=== PATIENT | female | born 2000 | race Caucasian/White ===

== ENCOUNTER 2023-04-18 10:38 | Outpatient (CLI) | payer OTHER, SELFPAY ==
[2023-04-18 19:16] LABS: Basophils # 0.1 K/mm3 (0-0.2); Eosinophils # 0.4 K/mm3 (0.0-0.4); Eosinophils % 5.8 % (0.1-12.0); Hematocrit 47.1 % (37.0-47.0); Hemoglobin 15.3 g/dL (12.2-16.2); Lymphocytes # 2.4 K/mm3 (0.7-4.5); Lymphocytes % 32.7 % (10-50); Mean Corpuscular HGB Conc 32.6 g/dL (31.8-35.4); Mean Corpuscular Hemoglobin 26.6 pg (27.0-31.2); Mean Corpuscular Volume 81.6 fl (81-99); Mean Platelet Volume 9.6 fl (7.4-10.4); Monocytes # 0.3 K/mm3 (0.1-1.0); Monocytes % 4.8 % (1.7-9.3); Neutrophils % 55.6 % (37.0-80.0); Platelet Count 222 K/mm3 (142-424); Red Blood Count 5.78 M/mm3 (4.20-5.40); Red Cell Distribution Width 15.2 % (11.5-17.5); White Blood Count 7.2 K/mm3 (4.8-10.8)
[2023-04-18 21:32] LABS: Hemoglobin A1C 5.2 % (4.0-6.0)
[2023-04-18 21:45] LABS: Alanine Aminotransferase 23 U/L (12-78); Alkaline Phosphatase 85 U/L (38-126); Aspartate Amino Transferase 27 U/L (14-36); Bilirubin,Total 0.3 mg/dl (0.2-1.3); Blood Urea Nitrogen 9 mg/dl (7-17); Calcium 8.8 mg/dl (8.4-10.2); Carbon Dioxide 28 mmol/L (22.0-30.0); Chloride 106 mmol/L (98-107); Estimated Glomerular Filt Rate 105 ml/min (>60); GFR (African American) 127 ML/MIN (>60); Glucose 91 mg/dl (74-100)
[2023-04-18 21:46] LABS: Albumin Level 4.4 g/dl (3.5-5.0); Albumin/Globulin Ratio 1.6 (1.1-1.8); Anion Gap 6.4 mEq/L (5-15); Globulin 2.8 g/dL (1.3-3.2); Potassium 4.4 mmoL/L (3.5-5.1); Sodium 136 mmol/L (136-145); Total Protein,Serum 7.2 g/dl (6.3-8.2)
[2023-04-18 22:02] LABS: HCG,Quantitative < 2 mIU/ml (0-5.42)
[2023-04-18 22:17] LABS: Thyroid Stimulating Hormone 0.61 uIU/mL (0.465-4.68)
== END 2023-04-18 23:59 ==
LOC: LAB.DROPOF 04-19 10:39
PROVIDERS: PCP Nurse Practitioner; Visit Provider Nurse Practitioner
DX: N91.2 Amenorrhea, unspecified (principal); Z13.1 Encounter for screening for diabetes mellitus
CPT/HCPCS: 80053; 83036; 84443; 84702; 85025

== ENCOUNTER 2023-05-23 09:15 | Outpatient (CLI) | payer OTHER, SELFPAY ==
[2023-05-24 08:21] LABS: Prolactin 18.6 ng/mL (4.8-33.4)
== END 2023-05-23 23:59 ==
LOC: LAB 09:16
PROVIDERS: Visit Provider Obstetrics & Gynecology
DX: E28.2 Polycystic ovarian syndrome (principal)
CPT/HCPCS: 36415; 84146

== ENCOUNTER 2023-08-02 18:04 | Emergency (ER) | payer OTHER, SELFPAY ==
[2023-08-02 18:05] VITALS: BP 117/65; PULSE 74; RESP 18; TEMP 36.7; O2SAT 100; BMI 49.7
[2023-08-02 18:31] VITALS: BP 95/63; PULSE 64; O2SAT 100
--- NOTE | 2023-08-02 18:41 | ED_ITS ---
<Statement entered by Ranjan Escalante MD - 08/02/23 22:48> I was consulted by the SHERRELL, and we discussed the complexity of the problems being addressed. I approved the treatment and management plan for this patient's care in the emergency department, thus performing a substantive portion of the medical decision making. Ranjan Escalante MD, DANYELLE, FACEP Discharge Plan Disposition Patient Disposition: Home, Self-Care Condition: Good Chief Complaint: Extremity Injury, Lower Prescriptions Prescriptions: No Action azithromycin [Zithromax] 500 mg tablet 1,000 mg PO ONCE Qty: 2 0RF malathion 0.5 % lotion 1 applic topical WEEKLY Qty: 59 1RF Referrals Follow up/Referrals: Lesley Douglass APRN [Primary Care Provider] - See instructions Lorri Kaur DPM [Staff Physician] - See instructions Activity Restrictions/Add. Instructions Additional Instructions/Restrictions: Ice and elevate your foot tonight. Weight-bear as tolerated but only in the boot. Take Tylenol alternating with Motrin every 4 hours as needed for pain Clinical Impressions Clinical Impression: Closed fracture of great toe of left foot Discharge ED Provider: Ranjan Escalante General Adult HPI General Chief complaint: Extremity Injury, Lower Stated complaint: [id number] LT foot inj Time Seen by Provider: 08/02/23 18:19 Mode of Arrival: Wheelchair Source of Information: Patient Limitations: No Limitations Description of Symptoms (Recalled from ER Triage Doc. by RN): Patient reports that she had a 20lb. thing of frozen meat fall onto the top of her left foot. Complaint of pain on the top of her foot and around the arch of her foot. History of Present Illness HPI narrative: Presents for left hallux pain. Patient dropped a 20 pound roll of frozen hamburger directly onto her dorsum of her great toe right at the base of the nail. She immediately felt pain and noticed that it started to swell. She is however able to bear weight although it is painful. She is neurovascularly intact. Related Data Previous Rx's Medication Instructions Recorded azithromycin 500 mg tablet 1,000 mg (2 x 500 mg) PO ONCE #2 05/29/23 (Zithromax) tabs malathion 0.5 % lotion 1 applic topical WEEKLY 2 doses 06/14/23 #59 mL hydrocodone 5 mg-acetaminophen 325 1 tab PO Q6H PRN pain 3 days #12 08/02/23 mg tablet tabs Allergies Allergy/AdvReac Type Severity Reaction Status Date / Time No Known Allergies Allergy Verified 05/24/23 15:30 PFSH PFS Disclaimer: The information contained in this section may have been updated after the patient was seen, as this information can be updated by other users. Medical History (Updated 08/02/23 @ 19:23 by KIMBER Villagomez) High blood cholesterol Depression Anxiety PCOS (polycystic ovarian syndrome) Bipolar 2 disorder, major depressive episode Surgical History Hx of section Family History (Updated 05/24/23 @ 15:35 by Michelle Castellanos) Grandmother Cancer Other Diabetes Hypertension Social History (Updated 05/24/23 @ 15:36 by Michelle Castellanos) Smoking Status: Unknown if ever smoked alcohol intake: never substance use type: marijuana current occupational status: employed Travel in the last 8 weeks: None ROS Obtained: Yes Systems reviewed as appropriate & no additional complaints except as documented Physical Exam General General appearance: alert and in no apparent distress Respiratory Respiratory exam: Present normal lung sounds bilaterally Cardiovascular Cardiovascular exam: Present regular rate and normal rhythm Neurological Exam Neurological exam: Present alert and oriented X3 Other Other exam information: Patient has a little bit of bleeding at the proximal nail fold and eponychium is visible. There appears to be a subungual hematoma arising proximally and spreading distally does not reach 50% yonatan of the nail plate. There is swelling and redness dorsally proximal to the nailbed. No obvious deformity but is exquisitely tender to palpation and range of motion Medical Decision Making Medical Records Medical records reviewed: Yes I reviewed the patient's medical records. Jose Inquiry Pt receiving controlled substance: No Vital Signs: 08/02/23 18:05 08/02/23 18:31 Temperature 98.0 F Temperature Source Oral Pulse Rate 64 Pulse Rate [Radial] 74 Respiratory Rate 18 Blood Pressure 95/63 L Blood Pressure [Right Arm] 117/65 Blood Pressure Mean [Right Arm] 82 Blood Pressure Source [Right Arm] Automatic Cuff Blood Pressure Position [Right Arm] Sitting 02 Sat by Pulse Oximetry 100 100 Oxygen Delivery Method Room Air Room Air Orders (Tests/Meds): ED MEDICATIONS Discontinued Medications Generic Name Dose Route Start Last Admin Trade Name Jordana PRN Reason Stop Dose Admin Acetaminophen 1,000 mg 08/02/23 18:49 Acetaminophen 500mg Tab PO 08/02/23 18:50 ONCE ONE Ketorolac Tromethamine 30 mg 08/02/23 18:49 Ketorolac 30mg/Ml Vial IM 08/02/23 18:50 ONCE ONE ORDERS Category Date Time Status Foot XR left 2 views [XR foot LT 2V] Stat Exams 08/02/23 18:49 Taken Medical Decision Narrative: In summary patient is a 22-year-old female who presents to the emergency department for evaluation of left toe injury. Patient is hemodynamically stable upon arrival, febrile. Physical exam is remarkable for pain and swelling at the left hallux along with a subungual hematoma but no obvious deformity. Range of motion testing is possible but causes exquisite pain. Patient still has good cap refill. Subungual hematoma does not reach more than 50% of the nailbed. Differential diagnosis includes contusion versus fracture. Initial workup will be conducted with plain film x-rays. Initial interventions include Toradol Tylenol. Initial workup reviewed by me distal tuft fracture of the hallux. Upon repeat evaluation patient had acceptable reduction in her pain. Given this patient will be placed in a walking boot and referred to podiatry for ongoing management. Critical Care Critical Care Time Critical Care Time: No
--- NOTE | 2023-08-02 18:49 | XR_ITS ---
PROCEDURE INFORMATION: Exam: XR Left Foot Exam date and time: 08/02/2023 7:08 PM Age: 22 years old Clinical indication: Injury or trauma; Other: Dropped 20 lb frozen meat on foot; Other: Pain after dropping 20 lb of frozen meat on foot; Additional info: Trauma to left hallux TECHNIQUE: Imaging protocol: Radiologic exam of the left foot. Views: 1 or 2 views. COMPARISON: No relevant prior studies available. FINDINGS: Bones/joints: Minimally displaced fracture involving the distal tuft of the great toe. Oblique nondisplaced fracture involving the lateral aspect of the base of the 1st distal phalanx. Soft tissues: Diffuse soft tissue swelling. IMPRESSION: Minimally displaced fracture involving the distal tuft of the great toe. Oblique nondisplaced fracture involving the lateral aspect of the base of the 1st distal phalanx.
[2023-08-02 19:38] VITALS: BP 111/82; PULSE 75; RESP 19; TEMP 36.8; O2SAT 98
[2023-08-02] MEDS: KETOROLAC 30MG/ML VIAL 30 MG IM (19:42)
[2023-08-02] MEDS: ACETAMINOPHEN 500MG TAB 1000 MG PO (19:43)
--- NOTE | 2023-08-02 19:46 | PC.NURSE ---
walking boot placed on left foot.
== END 2023-08-02 19:46 | disposition home or self-care (01) ==
PROVIDERS: Emergency Provider Student in an Organized Health Care Education/Training Program; PCP Nurse Practitioner
DX: S92.402A Displaced unspecified fracture of left great toe, initial encounter for closed fracture (principal); W20.8XXA Other cause of strike by thrown, projected or falling object, initial encounter
CPT/HCPCS: 73620; 96372; 99283

== ENCOUNTER 2023-12-25 12:04 | Outpatient (CLI) | payer BC, OTHER, SELFPAY ==
[2023-12-25 18:51] LABS: Coronavirus 19, PCR Not Detected (NotDetected); Influenza A, PCR Not Detected (NotDetected); Influenza B, PCR Not Detected (NotDetected)
== END 2023-12-25 23:59 | disposition home or self-care (01) ==
LOC: LAB.DROPOF 12-26 12:04
PROVIDERS: PCP Nurse Practitioner; Visit Provider Nurse Practitioner
DX: J06.9 Acute upper respiratory infection, unspecified (principal); F17.200 Nicotine dependence, unspecified, uncomplicated
CPT/HCPCS: 87636